=== PATIENT | male | born 1985 | race African-American/Black ===

== ENCOUNTER 2019-05-09 20:28 | Emergency (ER) | payer MEDICAID ==
[~2019-05-09] VITALS: Ht 167.6 cm; Wt 56.7 kg
[2019-05-09] MEDS ORDERED: NKM (20:35)
--- NOTE | 2019-05-09 20:38 | NUR ---
ED Nurse Note: PT WALKED IN C/O BACK PAIN, PT REPORTS IT HAS BEEN HURTING SINCE FRIDAY MORNING, PT STATES HE LIFTS HEAVY OBJECTS AT WORK AND WANTED TO GET CHECKED OUT BY THE DOCTOR. PT AMBULATORY W/ STEADY GAIT, NO OBVIOUS DEFORMITY AT THIS TIME, WILL CONT MONITOR.
[2019-05-09 20:39] VITALS: BP 123/81
[2019-05-09] MEDS ORDERED: Ketorolac 60mg Inj IM ONE (20:45)
[2019-05-09] MEDS ORDERED: Acetaminophen 500mg (ES) tab ORAL ONE (20:45)
[2019-05-09] MEDS ORDERED: ROBAXIN-750750 MG PO (20:55)
[2019-05-09] MEDS ORDERED: NAPROXEN250 MG ORAL (20:55)
--- NOTE | 2019-05-09 20:55 | Emergency Room Report ---
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 He describes the pain as sharp aching in nature, lower back aspect, worsened with movement, severity is moderate, alleviated with rest. Allergies: Coded Allergies: No Known Allergies (Unverified , 05/09/19) Patient History Social History: Reports: smoking, alcohol use, drug use Reviewed Nursing Documentation: PMH: Agreed; PSxH: Agreed Nursing Documentation-PMH Past Medical History: No Stated History Review of Systems All Other Systems: negative except mentioned in HPI Physical Exam Vital Signs Date Time Temp Pulse Resp B/P (MAP) Pulse Ox O2 Delivery O2 Flow Rate FiO2 05/09/19 20:31 98.2 76 18 123/81 (95) 98 Room Air Sp02 EP Interpretation: reviewed, normal General Appearance: well appearing, no apparent distress, alert Head: normocephalic, atraumatic Eyes: bilateral eye PERRL, bilateral eye EOMI ENT: uvula midline, moist mucus membranes Neck: supple, thyroid normal, supple/symm/no masses Respiratory: lungs clear, no respiratory distress, no retraction, no accessory muscle use Cardiovascular #1: normal peripheral pulses, regular rate, rhythm, no edema, no gallop, no murmur Gastrointestinal: non tender, soft, no guarding, no rebound Musculoskeletal: normal inspection, other - Tenderness to palpation paraspinal muscles, lower back, no midline tenderness, Neurologic: alert, oriented x3, other - 5 out of 5 strength plantar dorsiflexion at the ankle bilaterally, knee bilaterally, quadriceps flexion extension intact bilaterally, gait intact, 2+ patellar reflexes bilaterally, Achilles 2+, sensation grossly intact, fires EHL Psychiatric: mood/affect normal Skin: no rash, warm/dry Medical Decision Making Diagnostic Impression: Primary Impression: Low back pain ER Course The patient presents with acute onset of back pain after lifting. Clinically this patient can be ruled out for serious pathology given there is a completely normal neurological exam, no history of IV drug use, and no history of bowel or bladder incontinence, no perianal numbness/tingling, no constipation or urinary retention. Once the patient's pain was adequately controlled, the patient was able to ambulate and be discharged in stable condition with anticipatory guidance provided. Toradol given, Tylenol given, patient feels better, disposition home, return precautions discussed, no red flags of back pain Last Vital Signs Date Time Temp Pulse Resp B/P (MAP) Pulse Ox O2 Delivery O2 Flow Rate FiO2 05/09/19 20:39 98.2 76 18 123/81 98 Room Air Disposition: HOME, SELF-CARE Condition: Stable Scripts Methocarbamol* (ROBAXIN-750*) 750 Mg Tablet 750 MG PO QID, #28 TAB 0 Refills Prov: Sergo Faustin MD 05/09/19 Naproxen* (NAPROSYN*) 250 Mg Tablet 250 MG ORAL BID PRN for For Pain, #20 TAB 0 Refills Prov: Sergo Faustin MD 05/09/19 Referrals: [facility],REFERRING (PCP) Departure Forms: Return to Work Return to Work Date: May 12, 2019 Patient Instructions: Low Back Sprain With Rehab-SportsMed, Lumbosacral Strain , Back Pain, Adult Additional Instructions: The patient was provided with discharge instructions, notified to follow-up with a primary care doctor and or specialist in the next 24-48 hours, and to return to the ED if they have worsening of their symptoms. Please note that this report is being documented using [employer] technology. This can lead to erroneous entry secondary to incorrect interpretation by the dictating instrument. Sergo Faustin MD May 09, 2019 20:55
[2019-05-09 20:59] VITALS: BP 121/58
--- NOTE | 2019-05-09 20:59 | NUR ---
ED Nurse Note: PT CLEARED TO BE D/C PER ERMD, PT DISHCARGE AND AFTERCARE INSTRUCTION PROVIDED W/ PRESCRIPTION, PT EDUCATION DONE VIA DISCUSSION AND HANDOUT, PT ADVISED TO FOLLOW UP WITH PCP OR RETURN TO ED IF CHANGES IN CONDITION, VSS, AMBULATORY W/ STEADY GAIT, LEFT W/ ALL BELONGINGS.
== END 2019-05-09 20:59 | disposition home or self-care (01) ==
LOC: EMR 20:42
DX: M54.5 Low back pain (principal); F17.200 Nicotine dependence, unspecified, uncomplicated
CPT/HCPCS: 96372; 99283

== ENCOUNTER 2019-06-27 19:58 | Emergency (ER) | payer MEDICAID ==
[~2019-06-27] VITALS: Ht 167.6 cm; Wt 63.5 kg
[~2019-06-27 19:58] MED LIST: NAPROXEN250 MG ORAL; NKM; ROBAXIN-750750 MG PO
[2019-06-27 20:07] VITALS: BP 123/80
--- NOTE | 2019-06-27 20:14 | NUR ---
ED Nurse Note: Patient walked in to Er c/o left thigh pain 5/10. AAO x4, VSS at this time, skin is warm to touch.
--- NOTE | 2019-06-27 20:37 | Emergency Room Report ---
History of Present Illness General Chief Complaint: Pain Source: Patient Present Illness HPI 33-year-old male with no symptom past medical history here complaining of 6 months of left buttocks pain radiating to left leg. Patient denies any fall or injury. Reports that she sits down and the pain is worsened when sitting down and standing however feels better when walking. Has not been taking any medication for pain. Denies any tingling numbness. Reports in the past few days been getting worse. Denies any saddle paresthesia, urinary bowel incontinence. Denies chest pain, shortness of breath, palpitation, or other associated symptoms. Allergies: Coded Allergies: No Known Allergies (Unverified , 05/09/19) Patient History Past Medical History: see triage record Past Surgical History: unable to obtain Pertinent Family History: none Immunizations: UTD Reviewed Nursing Documentation: PMH: Agreed; PSxH: Agreed Nursing Documentation-PMH Past Medical History: No Stated History Review of Systems All Other Systems: negative except mentioned in HPI Physical Exam Vital Signs Date Time Temp Pulse Resp B/P (MAP) Pulse Ox O2 Delivery O2 Flow Rate FiO2 06/27/19 20:01 98.1 80 18 123/80 (94) 97 Room Air Sp02 EP Interpretation: reviewed, normal General Appearance: no apparent distress, alert, GCS 15, non-toxic Head: normocephalic, atraumatic Eyes: bilateral eye normal inspection, bilateral eye PERRL ENT: hearing grossly normal, normal pharynx, no angioedema, normal voice Neck: full range of motion, supple/symm/no masses Respiratory: chest non-tender, lungs clear, normal breath sounds, no wheezing, speaking full sentences Cardiovascular #1: regular rate, rhythm, no edema, no murmur Cardiovascular #2: 2+ dorsalis pedis (R), 2+ dorsalis pedis (L) Gastrointestinal: non tender, soft Rectal: deferred Genitourinary: normal inspection, no CVA tenderness Musculoskeletal: back normal, gait/station normal, normal range of motion, non- tender, no calf tenderness, other - Straight leg test positive left leg Neurologic: alert, oriented x3, responsive, motor strength/tone normal, sensory intact, speech normal Psychiatric: judgement/insight normal, memory normal, mood/affect normal, no suicidal/homicidal ideation Skin: no rash Lymphatic: no adenopathy Medical Decision Making PA Attestation Diagnosis and treatment plans were reviewed and discussed with my supervising physician Dr. Faustin Diagnostic Impression: Primary Impression: Sciatica of left side ER Course 33-year-old male with no symptom past medical history here complaining of 6 months of left buttocks pain radiating to left leg. Patient denies any fall or injury. Reports that she sits down and the pain is worsened when sitting down and standing however feels better when walking. Has not been taking any medication for pain. Denies any tingling numbness. Reports in the past few days been getting worse. Denies any saddle paresthesia, urinary bowel incontinence. Denies chest pain, shortness of breath, palpitation, or other associated symptoms. Ddx considered but are not limited to : Leg sprain versus fracture versus sciatica versus cauda equina Vital signs: are WNL, pt. is afebrile H&PE are most consistent with: Sciatica ORDERS: No x-ray necessary as there was no fall or injury, ibuprofen, Robaxin ED INTERVENTIONS: none DISCHARGE: At this time pt. is stable for d/c to home. Will provide printed patient care instructions, and any necessary prescriptions. Care plan and follow up instructions have been discussed with the patient prior to discharge. Patient to follow-up with his primary care provider and MRI may be needed Last Vital Signs Date Time Temp Pulse Resp B/P (MAP) Pulse Ox O2 Delivery O2 Flow Rate FiO2 06/27/19 20:07 98.1 18 123/80 97 Room Air 06/27/19 20:01 80 Disposition: HOME, SELF-CARE Condition: Stable Scripts Ibuprofen (Ibu) 800 Mg Tablet 800 MG PO BID, #21 TAB Prov: Lakshmi Fowler 06/27/19 Methocarbamol* (ROBAXIN-500*) 500 Mg Tablet 500 MG ORAL TID PRN for For Pain, #15 TAB 0 Refills Prov: Lakshmi Fowler 06/27/19 Patient Instructions: Sciatica, [id number] Additional Instructions: Take medication as directed follow-up with your primary care provider worsening symptoms return to the emergency room Lakshmi Fowler Jun 27, 2019 20:37
[2019-06-27] MEDS ORDERED: ROBAXIN-500MG ORAL (20:38)
[2019-06-27] MEDS ORDERED: IBU800 MG PO (20:38)
[2019-06-27 20:46] VITALS: BP 123/80
--- NOTE | 2019-06-27 20:48 | NUR ---
ED Nurse Note: Pt cleared by health care Provider for discharge. DC instructions/prescription was given and explained to pt and verbalized understanding of teachings. All medical deviecs such as ID band removed. Pt is AAO x4, ambulatory and left with all personal belongings.
== END 2019-06-27 20:46 | disposition home or self-care (01) ==
LOC: EMR 20:20
DX: M79.605 Pain in left leg (principal); M54.32 Sciatica, left side
CPT/HCPCS: 99282